=== PATIENT | male | born 1965 | race Native Hawaiian/Other Pacific Islander ===

== ENCOUNTER → 2018-10-18 | Outpatient (CLI) | payer BC | LOC: GMAE 11:09 | PROVIDERS: ATTEND Family Medicine | DX: Z84.89 Family history of other specified conditions (principal) ==

== ENCOUNTER → 2018-10-20 | Outpatient (CLI) | payer BC, OTHER ==
--- NOTE | 2018-10-20 09:35 | US ---
EXAM DESCRIPTION: Abdomen,Complete CLINICAL HISTORY: 65441 COMPARISON: None Available. TECHNIQUE: Complete abdominal ultrasound FINDINGS: The liver is slightly hyperechoic and coarsened echotexture consistent with hepatic steatosis. There is no focal hepatic mass. The gallbladder is well seen and unremarkable. There are no gallstones. There is no gallbladder wall thickening. The common bile duct is normal in caliber measuring 3.5. The pancreas and the spleen are unremarkable. The kidneys are normal in size, shape, and echotexture. The IVC and the proximal aorta are unremarkable. IMPRESSION: 1. Hepatic steatosis Electronically signed by: Sky Snyder MD 10/20/2018 9:34 AM [employer]
== END ==
LOC: US 07:45
PROVIDERS: ATTEND Family Medicine
DX: E83.110 Hereditary hemochromatosis (principal); K76.0 Fatty (change of) liver, not elsewhere classified; Z84.89 Family history of other specified conditions